=== PATIENT | female | born 1990 | race Caucasian/White ===

== ENCOUNTER 2016-10-02 07:17 | Emergency (ER) | payer SELFPAY ==
[2016-10-02 08:56] LABS: BASOPHILS % (AUTO) 0.5 % (0-2); EOSINOPHILS % (AUTO) 0.7 % (0-6); HEMATOCRIT 36.5 % (36.0-47.0); HEMOGLOBIN 12.3 g/dL (12.0-15.5); HGB HCT DIFFERENCE 0.4; LYMPHOCYTES % (AUTO) 25.9 % (13-45); MEAN CORPUSCULAR HEMOGLOBIN 30.7 pg (27.0-33.4); MEAN CORPUSCULAR HGB CONC 33.7 g/dL (32.0-36.0); MEAN CORPUSCULAR VOLUME 91 fl (80-97); MONOCYTES % (AUTO) 8.3 % (3-13); RED CELL DISTRIBUTION WIDTH 13.1 % (11.5-14.0); SEGMENTED NEUTROPHILS % (AUTO) 64.6 % (42-78); WHITE BLOOD COUNT 8.7 10^3/uL (4.0-10.5)
[2016-10-02 08:57] LABS: ABSOLUTE EOSINOPHILS # (AUTO) 0.1 10^3/uL (0.0-0.6); ABSOLUTE LYMPHOCYTES (AUTO) 2.2 10^3/uL (0.5-4.7); ABSOLUTE MONOCYTES (AUTO) 0.7 10^3/uL (0.1-1.4); ABSOLUTE NEUT (AUTO) 5.6 10^3/uL (1.7-8.2)
[2016-10-02 09:16] LABS: ALANINE AMINOTRANSFERASE 29 U/L (9-52); ALBUMIN 4.4 g/dL (3.5-5.0); ALKALINE PHOSPHATASE 65 U/L (38-126); ANION GAP 10 (5-19); ASPARTATE AMINO TRANSFERASE 19 U/L (14-36); BILIRUBIN,DIRECT 0.4 mg/dL (0.0-0.4); BILIRUBIN,TOTAL 1.2 mg/dL (0.2-1.3); BLOOD UREA NITROGEN 12 mg/dL (7-20); CALCIUM 9.6 mg/dL (8.4-10.2); CARBON DIOXIDE 24 mmol/L (22-30); CHLORIDE 105 mmol/L (98-107); CREATININE RESULT 0.71 mg/dL (0.52-1.25); GLUCOSE 97 mg/dL (75-110); LIPASE 34.2 U/L (23-300); POTASSIUM 3.7 mmol/L (3.6-5.0); SODIUM 138.7 mmol/L (137-145); TOTAL PROTEIN 7.6 g/dL (6.3-8.2)
[2016-10-02 09:46] LABS: APPEARANCE,URINE CLEAR; BILIRUBIN,URINE NEGATIVE (NEGATIVE); GLUCOSE, URINE NEGATIVE (NEGATIVE); KETONES,URINE NEGATIVE (NEGATIVE); LEUKOCYTE ESTERASE,URINE NEGATIVE (NEGATIVE); NITRITE,URINE NEGATIVE (NEGATIVE); PROTEIN,URINE NEGATIVE (NEGATIVE); URINE SPECIFIC GRAVITY 1.016; UROBILINOGEN,URINE NEGATIVE mg/dL (<2.0)
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
[2016-10-02] MEDS ORDERED: KETOROLAC TROMETHAMINE INJ/PF 30 MG/1 ML SDV IV ONE (12:19)
--- NOTE | 2016-10-02 12:34 | RADIOLOGY REPORT (SQ) ---
EXAM DESCRIPTION: U/S NON OB PEL TV W/DOPPLER COMPLETED DATE/TIME: 10/02/2016 11:51 am REASON FOR STUDY: LLQ pain COMPARISON: None. TECHNIQUE: Dynamic and static grayscale images acquired of the pelvis via transvaginal approach and recorded on PACS. Additional selected color Doppler and spectral images recorded. LIMITATIONS: None. FINDINGS: UTERUS: Contour normal. No mass. ENDOMETRIAL STRIPE: No focal or generalized thickening. No masses. No intrauterine gestational sac. CERVIX: No nabothian cysts. RIGHT OVARY: No abnormal masses. RIGHT OVARY DOPPLER: Normal arterial vascular flow without evidence for torsion. LEFT OVARY: There is an irregular 27 x 26 x 15 mm cyst. LEFT OVARY DOPPLER: Normal arterial vascular flow without evidence for torsion. FREE FLUID: None noted. OTHER: No other significant finding. MEASUREMENTS: UTERUS: 75 x 41 x 32 mm. ENDOMETRIAL STRIPE: 8.6 mm. RIGHT OVARY: 25 x 19 x 16 mm. LEFT OVARY: 34 x 28 x 25 mm. IMPRESSION: The study is essentially normal except for a somewhat irregular left ovarian cyst as mitchell cribed. TECHNICAL DOCUMENTATION: JOB ID: [id number]- All Rights Reserved
[2016-10-02 12:44] LABS: ALCOHOL < 10 mg/dL (NONE DETECTED)
[2016-10-02 12:48] LABS: URINE BARBITURATES SCREEN NEGATIVE; URINE METHADONE SCREEN NEGATIVE; URINE OPIATES LOW NEGATIVE; URINE PHENCYCLIDINE SCREEN NEGATIVE
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
[2016-10-02 15:47] VITALS: BP 112/65
== END 2016-10-02 15:58 | disposition home or self-care (01) ==
LOC: ER 07:17
DX: R10.2 Pelvic and perineal pain (principal); S61.512D Laceration without foreign body of left wrist, subsequent encounter; X78.9XXD Intentional self-harm by unspecified sharp object, subsequent encounter
CPT/HCPCS: 99285; 96374; 36415; 80307 ×4; 83690; 85025; 81025; 80053; 81001; 76830; 93976; J1885

== ENCOUNTER 2016-12-30 10:10 | Emergency (ER) | payer SELFPAY ==
[2016-12-30 10:16] VITALS: BP 116/71
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
== END 2016-12-30 10:28 | disposition home or self-care (01) ==
LOC: ER 10:10
DX: Z76.0 Encounter for issue of repeat prescription (principal); F41.9 Anxiety disorder, unspecified; F17.210 Nicotine dependence, cigarettes, uncomplicated
CPT/HCPCS: 99283

== ENCOUNTER 2017-01-07 12:27 | Emergency (ER) | payer SELFPAY ==
[2017-01-07] MEDS ORDERED: LORAZEPAM INJ 2 MG/1 ML VIAL IV ONE (12:48)
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
[2017-01-07 16:50] VITALS: BP 114/74
== END 2017-01-07 16:50 | disposition home or self-care (01) ==
LOC: ER 12:27
DX: F13.239 Sedative, hypnotic or anxiolytic dependence with withdrawal, unspecified (principal); R56.9 Unspecified convulsions; T42.4X5A Adverse effect of benzodiazepines, initial encounter; Y92.59 Other trade areas as the place of occurrence of the external cause; F17.200 Nicotine dependence, unspecified, uncomplicated
CPT/HCPCS: 99284; 96374; J2060

== ENCOUNTER 2017-03-07 18:11 | Emergency (ER) | payer SELFPAY ==
[2017-03-07 18:19] VITALS: BP 118/73
[2017-03-07] MEDS ORDERED: LIDOCAINE 1% INJ-PF (10 MG/ML) 30 ML SDV INJ ONE (18:33)
[2017-03-07] MEDS ORDERED: DIPH/PERTUSS(ACELL)/TETANUS VAC/PF 0.5 ML SYR (>=10YO) IM ONE (18:33)
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
[2017-03-07] MEDS ORDERED: OXYCODONE HCL IR 5 MG TABLET PO ONE (19:37)
[2017-03-07] MEDS ORDERED: HYDROCODONE/ACETAMINOPHEN 5-325 MG 6 TAB/DSPK PO PRN (19:42)
== END 2017-03-07 19:52 | disposition home or self-care (01) ==
LOC: ER 18:11
PROC: 0HQ4XZZ Repair Neck Skin, External Approach (ICD-10-PCS; principal; 2017-03-07)
DX: S11.91XA Laceration without foreign body of unspecified part of neck, initial encounter (principal); Y09 Assault by unspecified means; Z23 Encounter for immunization
CPT/HCPCS: 90471; 90715; 99283